=== PATIENT | female | born 1950 | race Asian ===

== ENCOUNTER 2024-07-04 13:37 | Inpatient (IN) | payer MEDICARE, SELFPAY ==
[2024-07-04] VITALS (15 sets, daily range): BP systolic 95–162; BP diastolic 50–102; PULSE 40–448; RESP 13–24; TEMP 36.2–37; O2SAT 87–100; BMI 27.4
--- NOTE | 2024-07-04 13:44 | EKG_ITS ---
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
--- NOTE | 2024-07-04 13:44 | PD.EDADULT ---
ED General RME/HPI General Chief complaint: Syncope / Near Syncope Stated complaint: SYNCOPE Time Seen by Provider: 07/04/24 13:43 Arrival date/time: 07/04/24 13:37 CC: Syncope versus near syncope HPI patient presents the ER via EMS who were called initially to a unresponsive at the [facility]. Patient was found slumped over slot machine. Patient was easily arousable however EMS reported the patient was bradycardic stable blood pressures in the 120s over 70s blood sugar was acceptable. Patient is now awake alert oriented stating this is not the first time its happened however the last time she did not seek medical attention and went home. Patient denies fever chills nausea chest pain shortness of breath or difficulty breathing no other complaints Related Data Home Medications ?Medication ?Instructions ?Recorded ?Confirmed furosemide 40 mg tablet (Lasix) 40 mg PO QDAY #0 tabs 12/05/16 11/12/17 simvastatin 20 mg tablet (Zocor) 20 mg PO HS #0 tabs 12/05/16 11/12/17 amlodipine 10 mg tablet 10 mg PO QDAY 11/12/17 11/12/17 famotidine 20 mg tablet (Pepcid) 20 mg PO QDAY 11/12/17 11/12/17 hydralazine 50 mg tablet 50 mg PO TID 11/12/17 11/12/17 isosorbide mononitrate 30 mg 30 mg PO QAM 11/12/17 11/12/17 tablet,extended release 24 hr lisinopril 40 mg tablet 40 mg PO QDAY 11/12/17 11/12/17 lorazepam 0.5 mg tablet 0.5 mg PO QDAY PRN Anxiety 11/12/17 11/12/17 metoprolol succinate 50 mg 50 mg PO QDAY 11/12/17 11/12/17 tablet,extended release 24 hr Previous Rx's ?Medication ?Instructions ?Recorded ondansetron HCl 4 mg tablet 4 mg PO Q6H #20 tabs 10/05/20 (Zofran) Allergies Allergy/AdvReac Type Severity Reaction Status Date / Time No Known Allergies Allergy Verified 11/06/20 08:57 Review of Systems Review of Systems Narrative Review of Systems: GEN: No fever, no chills, no weight loss EYES: No discharge, no visual changes, no pain HEENT: No ear pain, no congestion, no sore throat PULM: No shortness of breath, no cough, no congestion CV: No chest pain, no dyspnea on exertion, no palpitations GI: No nausea, no vomiting, no diarrhea, no pain, no constipation : No frequency, no urgency, no dysuria MUSC/SKEL: No joint pain, no back pain SKIN: No rash PSYCH: No hallucinations, no depression HEME/LYMPH: No easy bleeding or bruising tendencies NEURO: No weakness, no headache Past Medical History Past Medical History NEUROLOGIC: Positive Cerebrovascular Accident CARDIAC: Positive Cardiac Disorders and Hypertension; Negative Congestive Heart Failure RESPIRATORY: Negative Chronic Obstructive Pulmonary Disease (COPD) GENITOURINARY: Negative Renal Disease ENDOCRINE: Negative Diabetes Mellitus Type 1 or Diabetes Mellitus Type 2 Social History SMOKING STATUS: Never smoker ED Exam Narrative Physical exam: [General: Not in any acute distress Head normocephalic HEENT: Within acceptable limits Neck is supple nontender Chest equal chest rise nontender to palpation Respiratory: Clear to auscultation no wheezes crackles or rubs CV: Rate rhythm is regular no murmurs rubs or clicks Abdomen is soft nontender no masses positive bowel sounds all 4 quadrants Back: No CVA tenderness no spinous process tenderness from cervical spine thoracic and lumbar spine Skin: Intact no petechiae rash induration ulceration or crepitus Extremities: Moving all extremity against resistance cap refill less than 2 seconds neurosensory intact Neuro: Awake alert oriented x3 Glascow coma 15 no focal deficits] Course Course Course Narrative: Patient chart states that the patient is on metoprolol 50 mg daily however the patient is not sure that she takes it on a daily basis will attempt to update and confirm whether she is on an beta or calcium channel essie. This may be the cause of the persistent bradycardia. Per the patient's pharmacy, the only active antihypertensives are amlodipine and lisinopril. The patient is not on metoprolol. Review of the laboratory results show the patient has a LAWANDA which she has not had in the past along with his persistent bradycardia. Patient's case discussed with Dr. Torres, who agrees to accept the patient, Dr. Goldsmith will consult. Quality Measures none Orders Category Date Time Status EKG (ED ONLY) *Do not use* NOW Care 07/04/24 13:44 Completed EKG (ED Only) Stat Exams 07/04/24 13:44 Draft B-Type Natriuretic Peptide Stat Lab 07/04/24 14:00 Completed CBC Stat Lab 07/04/24 14:00 Completed Comprehensive Metabolic Panel Stat Lab 07/04/24 14:00 Completed Drug Screen,Urine Stat Lab 07/04/24 13:44 Ordered LDH (Lactate Dehydrogenase) Stat Lab 07/04/24 14:00 Completed Magnesium Stat Lab 07/04/24 14:00 Completed Partial Thromboplastin Time Stat Lab 07/04/24 14:00 Completed Prothrombin Time with INR Stat Lab 07/04/24 14:00 Completed Troponin I Stat Lab 07/04/24 14:00 Completed Urinalysis Stat Lab 07/04/24 13:44 Ordered Vital Signs Vital signs: Vital Signs Temperature 97.9 F 07/04/24 14:10 Pulse Rate 448 H 07/04/24 14:10 Respiratory Rate 16 07/04/24 14:10 Blood Pressure 113/58 L 07/04/24 14:10 Pulse Oximetry (%) 97 07/04/24 14:10 Oxygen Delivery Method Room Air 07/04/24 14:10 [facility] Patient data External records reviewed:: [facility] previous records and EMS form Clinical information provided by:: patient and EMS Social determinants that could affect healthcare access:: none Patient has the following chronic illnesses:: Hypertension hyperlipidemia How is presenting disease/condition affected by chronic disease/condition?: uneffected by Evaluation data The following diagnostics were reviewed and interpreted by me:: lab results, radiology exam(s) and EKG tracing(s) Lab and/or radiology exams considered but not ordered:: EKG performed at 1403 shows a ventricular rate of 4 7 NC interval 198 QRS of 98 QTc of 478 sinus bradycardia borderline prolonged QT interval. CBC shows no leukocytosis stable anemia no thrombocytopenia CMP shows no electrolyte imbalances there is an LAWANDA, no transaminitis or T. bili elevation Troponin is negative BNP is mildly elevated at 152. Interpretation Summary: I am concerned the patient's bradycardia is the result of the last 2 syncopal events the first 1 the patient states she never reported and had her brother take her home, patient's case discussed with Dr. Goldsmith who agrees the patient needs to be admitted for LAWANDA and symptomatic bradycardia. Dr. Sharif agrees to accept the patient for admission. Medications Medications considered but not ordered:: None Medication administrations:: None Consultations Consultation(s) initiated? (list below): Yes Consultation #1 (Physician, Specialty, Details): Dr. Goldsmith Time: 15:24 Diagnosis Differential Diagnosis ED Complaint MDM: Symptomatic bradycardia acute renal failure [facility] Most likely diagnosis given after review of the tests above:: Bradycardia syncope LAWANDA Admission Indicated Admission indicated?: indicated Explain why admission is indicated or not indicated:: Further medical management Admission Request Was there a request for admission?: No Disposition Plan Disposition Plan: Admit Medical Decision Making Differential Diagnosis Differential Diagnosis: Symptomatic bradycardia acute renal failure [facility] [place] Lab Data 07/04/24 14:00 07/04/24 14:00 Labs: Lab Results 07/04/24 Range/Units 14:00 WBC 7.9 (3.6-11.0) Thou/mm3 RBC 3.59 L (4.00-5.20) Miln/mm3 Hgb 11.0 L (12.0-16.0) g/dL Hct 32.2 L (36.0-46.0) % MCV 90 (80-100) fL MCH 30.6 (25.0-35.0) pg MCHC 34.2 (31.0-37.0) g/dl RDW Std Deviation 42.8 (36.4-46.3) fL Plt Count 327 (140-440) Thou/mm3 Neut % (Auto) 63 (37-80) % Lymph % (Auto) 27 (10-50) % Andrews % (Auto) 5 (0-12) % Eos % (Auto) 4 (0-10) % Baso % (Auto) 1 (0-2.5) % Neut # (Auto) 5.0 (1.8-7.7) Thou/mm3 Lymph # (Auto) 2.1 (1.0-4.8) Thou/mm3 Andrews # (Auto) 0.4 (0.0-0.8) Thou/mm3 Eos # (Auto) 0.3 (0.0-0.5) Thou/mm3 Baso # (Auto) 0.1 (0.0-0.2) Thou/mm3 Immature Gran # (Auto) 0.02 H (0.00-0.00) Thou/mm3 Absolute Nucleated RBC 0.00 (0.00-0.00) Thou/mm3 Immature Gran % 0 (0-0) % Nucleated RBC % 0 (0) /100 WBC PT 10.7 (9.0-12.2) Seconds INR 1.0 (0.9-1.3) APTT 27.3 (22.0-36.0) Seconds Sodium 137 (136-145) mMol/L Potassium 4.2 (3.4-5.1) mMol/L Chloride 105 (98-107) mMol/L Carbon Dioxide 24.2 (20.0-31.0) mMol/L Anion Gap 8 (7-16) BUN 37 H (9-23) mg/dL Creatinine 2.1 H (0.6-1.3) mg/dL Estim Creat Clear Calc Not Performed. eGFR 24 L (60 - ) See Note BUN/Creatinine Ratio 18 (12-20) Ratio Glucose 150 H (74-106) mg/dL Calculated Osmolality 285 (275-295) Calcium 9.2 (8.3-10.6) mg/dL Corrected Calcium 9.2 (8.5-10.1) mg/dL Magnesium 1.7 (1.6-2.6) mg/dL Total Bilirubin 0.4 (0.3-1.2) mg/dL AST 17 (0-34) U/L ALT 9 L (10-49) U/L Alkaline Phosphatase 74 (46-116) U/L Lactate Dehydrogenase 175 (120-246) U/L Troponin I < 0.020 (0.0-0.045) ng/mL B-Natriuretic Peptide 152 H (0-100) pg/mL Total Protein 6.5 (5.7-8.2) gm/dL Albumin 4.0 (3.4-4.8) gm/dL Globulin 2.5 (2.3-3.5) gm/dL Albumin/Globulin Ratio 1.6 (1.2-2.2) Discharge Plan Plan Patient Disposition: Other Care w/in Hosp ([facility]) Patient condition on transfer: Stable Prescriptions/Referrals Prescriptions/Med Rec: No Action furosemide [Lasix] 40 MG tablet 40 mg PO QDAY Qty: 0 simvastatin [Zocor] 20 MG tablet 20 mg PO HS Qty: 0 ondansetron HCl [Zofran] 4 mg tablet 4 mg PO Q6H Qty: 20 0RF metoprolol succinate 50 mg Tablet Extended Release 24 Hr 50 mg PO QDAY isosorbide mononitrate 30 mg Tablet Extended Release 24 Hr 30 mg PO QAM famotidine [Pepcid] 20 mg Tablet 20 mg PO QDAY lorazepam 0.5 mg Tablet 0.5 mg PO QDAY PRN (Reason: Anxiety) amlodipine 10 mg Tablet 10 mg PO QDAY hydralazine 50 mg Tablet 50 mg PO TID lisinopril 40 mg Tablet 40 mg PO QDAY Referrals: Lia Carolina MD [Primary Care Provider] - In 1 week Problem List Clinical Impression: Bradycardia, LAWANDA (acute kidney injury), Syncope Patient/Caregiver Discharge Instructions Print Language: Macedonian Stand Alone Forms: Cece Award Info., Patient Portal Info Letter PA/CORRECTIONS SPECIALIST Supervising Physician PA/CORRECTIONS SPECIALIST Supervising Physician: Bebo Noguera ENP
[2024-07-04 14:21] LABS: Basophils # (Auto) 0.1 Thou/mm3 (0.0-0.2); Basophils % (Auto) 1 % (0-2.5); Eosinophils # (Auto) 0.3 Thou/mm3 (0.0-0.5); Eosinophils % (Auto) 4 % (0-10); Hematocrit 32.2 % (36.0-46.0); Immature Granulocytes % (Auto) 0 % (0-0); Immature Granulocytes Auto 0.02 Thou/mm3 (0.00-0.00); Lymphocytes # (Auto) 2.1 Thou/mm3 (1.0-4.8); Lymphocytes % (Auto) 27 % (10-50); Mean Corpuscular HGB Conc 34.2 g/dl (31.0-37.0); Mean Corpuscular Hemoglobin 30.6 pg (25.0-35.0); Mean Corpuscular Volume 90 fL (80-100); Monocytes # (Auto) 0.4 Thou/mm3 (0.0-0.8); Monocytes % (Auto) 5 % (0-12); Neutrophils % (Auto) 63 % (37-80); Nucleated Red Blood Cell % 0 /100 WBC (0); Platelet Count 327 Thou/mm3 (140-440); RDW Standard Deviation 42.8 fL (36.4-46.3); Red Blood Count 3.59 Miln/mm3 (4.00-5.20); White Blood Count 7.9 Thou/mm3 (3.6-11.0)
[2024-07-04 14:38] LABS: B-Type Natriuretic Peptide 152 pg/mL (0-100)
[2024-07-04 14:39] LABS: Partial Thromboplastin Time 27.3 Seconds (22.0-36.0); Prothrombin Time 10.7 Seconds (9.0-12.2)
[2024-07-04 14:41] LABS: Alanine Aminotransferase 9 U/L (10-49); Albumin/Globulin Ratio 1.6 (1.2-2.2); Alkaline Phosphatase 74 U/L (46-116); Anion Gap 8 (7-16); Aspartate Amino Transferase 17 U/L (0-34); BUN/Creatinine Ratio 18 Ratio (12-20); Bilirubin,Total 0.4 mg/dL (0.3-1.2); Blood Urea Nitrogen 37 mg/dL (9-23); Calcium 9.2 mg/dL (8.3-10.6); Calcium (Corrected) 9.2 mg/dL (8.5-10.1); Carbon Dioxide 24.2 mMol/L (20.0-31.0); Chloride 105 mMol/L (98-107); Creatinine (Component) 2.1 mg/dL (0.6-1.3); Globulin 2.5 gm/dL (2.3-3.5); Glucose 150 mg/dL (74-106); Magnesium 1.7 mg/dL (1.6-2.6); Osmolality,Calculated 285 (275-295); Potassium 4.2 mMol/L (3.4-5.1); Sodium 137 mMol/L (136-145); Total Protein 6.5 gm/dL (5.7-8.2); Troponin I < 0.020 ng/mL (0.0-0.045); eGFR 24 See Note
[2024-07-04 14:59] LABS: LDH (Lactate Dehydrogenase) 175 U/L (120-246)
--- NOTE | 2024-07-04 16:02 | ECHO_ITS ---
Transthoracic Echo Report Ht (in): 62 Wt (lb): 140 Exam Location: Portable Status: Inpatient Manager Statistical Programming: Cielo Cali Indications: Procedure Performed: BP: 166 / 84 HR: 55 Rhythm: Sinus Technical Quality: Fair MEASUREMENTS (Male / Female) Normal Values 2D ECHO LV Diastolic Diameter PLAX 4.1 cm 4.2 - 5.9 / 3.9 - 5.3 cm LV Systolic Diameter PLAX 2.6 cm IVS Diastolic Thickness 1.1 cm 0.6 - 1.0 / 0.6 - 0.9 cm LVPW Diastolic Thickness 1.1 cm 0.6 - 1.0 / 0.6 - 0.9 cm LV Relative Wall Thickness 0.5 LVOT Diameter 1.8 cm LA Volume Index 30.3 cm?/m? 16 - 28 cm?/m? Ascending Aorta Diameter 3.4 cm M-MODE Aortic Root Diameter MM 2.8 cm LA Systolic Diameter MM 3.5 cm LA Ao Ratio MM 1.3 AV Cusp Separation MM 1.7 cm DOPPLER AV Peak Velocity 217.5 cm/s AV Peak Gradient 18.9 mmHg AV Mean Gradient 12.7 mmHg AV Velocity Time Integral 45.9 cm LVOT Peak Velocity 188.0 cm/s LVOT Peak Gradient 14.1 mmHg LVOT Velocity Time Integral 39.4 cm LVOT Cardiac Index 3280.9 cm?/min?m? AV Area Cont Eq vti 2.2 cm? AV Area Cont Eq pk 2.2 cm? MV Peak Velocity 170.0 cm/s MV Peak Gradient 11.6 mmHg MV Mean Velocity 94.0 cm/s MV Mean Gradient 4.0 mmHg MV Area PHT 2.7 cm? MR Peak Velocity 408.5 cm/s MR Peak Gradient 66.7 mmHg Mitral E Point Velocity 94.5 cm/s Mitral A Point Velocity 165.0 cm/s Mitral E to A Ratio 0.6 LV E' Lateral Velocity 9.7 cm/s Mitral E to LV E' Lateral Ratio 9.8 LV E' Septal Velocity 4.8 cm/s Mitral E to LV E' Septal Ratio 19.7 TR Peak Velocity 296.0 cm/s TR Peak Gradient 35.0 mmHg FINDINGS Left Ventricle Normal left ventricular size, systolic function with no obvious regional wall motion abnormalities. Mild LVH. The ejection fraction is visually estimated at 60-65%. Right Ventricle The right ventricle is normal in size and systolic function. The estimated right ventricular systoli c pressure, 43 mmHg. RAP 5. Left Atrium The left atrium is normal by two-dimensional, color flow and Doppler imaging with no structural abnormalities, no thrombus formation present. Right Atrium The right atrium is normal by two-dimensional imaging, color flow and Doppler imaging with no struct ural abnormalities, no thrombus formation present. Atrial Septum The interatrial septum appears normal with no evidence of a shunt. Aorta The aorta is normal by two-dimensional, color flow and Doppler interrogation. Mitral Valve The mitral valve is moderately MAC. There is mild mitral valve regurgitation. Aortic Valve The aortic valve is trileaflet. Mild sclerosis without stenosis. There is no significant aortic valv e regurgitation. Tricuspid Valve The tricuspid valve is normal by two-dimensional, color flow and Doppler interrogation. There is mil d tricuspid valve regurgitation. Pulmonic Valve There is no significant pulmonic valve regurgitation. Vessels The pulmonary artery appears normal. The inferior vena cava pulmonary and hepatic veins appear simone l. Pericardium The pericardium is normal by two-dimensional imaging. There is no significant pericardial effusion. CONCLUSIONS Normal LV size and function. Mild LVH. Estimated EF 60-65% Normal RV size and function. Estimated RVSP 43mmHg Moderately MAC. Mild MR, TR Mild AV sclerosis without stenosis. Meka Alex (Electronically Signed) Final Date: 05 July 2024 15:44
--- NOTE | 2024-07-04 16:14 | ESHP_ITS ---
Documentation for date of: 07/04/24 [facility] History of Present Illness History of present illness: This is a 74-year-old female with PMHx of HTN, HLD, GERD, cardiomyopathy (unknown), and gout BIBA for syncope. [place]. Reportedly, she lost consciousness and fell on the ground. Patient does not remember event, or how long she was out for. Her sister picked her up from the floor and supposedly she was out for about a minute. She denies any symptoms leading to the event such as palpitation, chest pain, shortness of breath. No reported bowel or GI incontinence. No seizure activity. No head trauma. Patient had similar symptoms several weeks ago she passed out at home. She follows up with Dr. Goldsmith outpatient for heart problem, and previously has been prescribed LASIX which was stopped by cardiology and currently not taking. She has a history of hypertension for which she takes CLONIDINE, AMLODIPINE, LISINOPRIL and HYDROCHLOROTHIAZIDE. She checks her vitals daily and sometimes her blood pressure monitor shows low for which she would skip one of the medications. She states she has been eating well and drinking enough fluids. Denies fever, headaches, seizure activities, visual changes, focal neurological deficits, chest pain, palpitations, shortness of breath, cough, GI bleed, abdominal pain, N/V/D/C, dysuria, polyuria or hematuria. Denies tobacco use, alcohol use, or drug use. No sick exposure or recent travel. ED COURSE: Afebrile, BP 111/58, HR 40s, satting 97% on room air Hgb 11 (baseline 13), no leukocytosis, normal coag studies CMP showed CR 2.1, BUN 37, GFR 24 (baseline 40?50) BNP 152, troponin is negative EKG showed sinus bradycardia, no acute ST changes The hospitalist team has been consulted for this patient. We will admit patient for syncope workup. PMHx: HTN, HLD, GERD, cardiomyopathy, gout PSHx: None MEDS: CLONIDINE, ISOSORBIDE MONONITRATE, AMLODIPINE, LISINOPRIL, LORAZEPAM, HCTZ, iron, ALLOPURINOL ALLERGIES: NKA SH: Denies tobacco, alcohol or drug use Exam Vital Signs Temp Pulse Resp BP Pulse Ox O2 Del Method 97.9 F 448 H 16 113/58 L 97 Room Air 07/04/24 14:10 07/04/24 14:10 07/04/24 14:10 07/04/24 14:10 07/04/24 14:10 07/04/24 14:10 Narrative Exam GENERAL * Normal-appearing elderly female, no apparent distress, on room air HEENT * NCAT.?ARIEL. Oral mucosa is moist. Patent Nares NECK * Supple, nontender, no thyromegaly, no meningismus, no JVD, no step offs CHEST * Bradycardic, regular rhythm, no m/g/r * CTAB, no w/r/r. Symmetrical chest rise. No intercostal subcostal retraction * Atraumatic, nontender, no crepitus, symmetrical expansion. ABDOMEN * Soft, flat, nontender. No guarding/rebound tenderness/masses. * Bowel sounds presents EXTREMITIES * Nontender, no cyanosis, no edema * No edema/cyanosis.? SKIN * Warm and dry, no jaundice/rashes. NEUROMUSCULAR * No lumbar or midline, no CVA, no paraspinal muscle spasm or tenderness. * Moves all 4 extremities well, with full ROM and good CSM. * FONTAINE x4, CN II-XII grossly intact. * No focal neurologic deficits. PSYCHIATRY * Normal mood and affect, cooperative, no SI or HI or hallucinations. Results: Labs 07/04/24 14:00 07/04/24 14:00 Labs: Short CBC 07/04/24 Range/Units 14:00 WBC 7.9 (3.6-11.0) Thou/mm3 Hgb 11.0 L (12.0-16.0) g/dL Hct 32.2 L (36.0-46.0) % Plt Count 327 (140-440) Thou/mm3 BMP 07/04/24 14:00 Sodium 137 Potassium 4.2 Chloride 105 Carbon Dioxide 24.2 BUN 37 H Creatinine 2.1 H Glucose 150 H Calcium 9.2 Cardiac Enzymes 07/04/24 Range/Units 14:00 Troponin I < 0.020 (0.0-0.045) ng/mL Liver Function 07/04/24 Range/Units 14:00 Total Bilirubin 0.4 (0.3-1.2) mg/dL AST 17 (0-34) U/L ALT 9 L (10-49) U/L Alkaline Phosphatase 74 (46-116) U/L Albumin 4.0 (3.4-4.8) gm/dL Quality Measures Quality Measures none Advance care planning discussed with:: patient Medications Home Medications and Allergies Home Medications ?Medication ?Instructions ?Recorded ?Confirmed ?Type amlodipine 10 mg tablet 10 mg PO QDAY 11/12/17 07/04/24 History isosorbide mononitrate 30 mg 30 mg PO QAM 11/12/17 07/04/24 History tablet,extended release 24 hr lisinopril 40 mg tablet 40 mg PO QDAY 11/12/17 07/04/24 History lorazepam 0.5 mg tablet 0.5 mg PO QDAY PRN Anxiety 11/12/17 07/04/24 History Allergies Allergy/AdvReac Type Severity Reaction Status Date / Time No Known Allergies Allergy Verified 11/06/20 08:57 Visit Medications Acetaminophen (Acetaminophen 325 Mg Tablet) 650 mg PO Q6H PRN PRN Reason: PAIN SCALE 1-3 (mild Stop: 08/03/24 16:01 Acetaminophen (Acetaminophen 325 Mg Tablet) 650 mg PO Q6H PRN PRN Reason: Fever >100 Stop: 08/03/24 16:01 Hydrocodone Bitart/Acetaminophen (Hydrocodone/Apap 10/325 Tab) 1 tab PO Q4HR PRN PRN Reason: PAIN SCALE 7-10 (Severe Stop: 07/09/24 16:01 Magnesium Sulfate (Magnesium Sulfate Ivpb) 4 gm in 50 mls @ 12.5 mls/hr IV X1 ONE Stop: 07/04/24 20:03 Sodium Chloride (Ns) 500 mls @ 999 mls/hr IV .Q31M ONE Stop: 07/04/24 16:32 Sodium Chloride (Ns) 1,000 mls @ 70 mls/hr IV .[id number] CANDIE Stop: 08/03/24 16:04 Melatonin (Melatonin 3 Mg Tablet) 3 mg PO HS PRN PRN Reason: Insomnia Stop: 08/03/24 20:59 Ondansetron HCl (Ondansetron Inj 2 Mg/Ml Inj 2 Ml) 4 mg IV Q6H PRN; Protocol PRN Reason: NAUSEA OR VOMITING Stop: 08/03/24 16:01 Oxycodone/Acetaminophen (Oxycodone/Apap 5/325 Tablet) 1 tab PO Q6H PRN PRN Reason: PAIN SCALE 4-6 (Moderate Stop: 07/09/24 16:01 Pantoprazole Sodium (Pantoprazole Inj 40 Mg Vial) 40 mg IVP QDAY CANDIE Stop: 08/04/24 08:59 Assessment & Plan Plan In summary: 74-year-old female with PMHx of HTN, HLD, GERD, cardiomyopathy (unknown), and gout admitted for syncope. Patient was found to be bradycardic with HR in 40s, EKG sinus bradycardia no ST changes, normal troponins. Appreciate recommendations from cardiology. Syncope likely 2/2 Sinus bradycardia Presenting with [place]opal [place], patient passed out suddenly and fell on the floor. Patient without for about 1 minute, does not remember the event, denied head trauma. Had similar episode 4 weeks ago that occurred at home. Takes multiple medication for hypertension and states sometimes her blood pressure runs low on the monitor and she would skip one of her meds. Follows up with cardiology outpatient for an ongoing cardiomyopathy, previously prescribed LASIX which was discontinued. Currently not taking. Denies seizure activities, fever, chills, signs of infection. No metabolic or electrolyte abnormalities on workup. Possible dehydration component given LAWANDA. EKG showed sinus bradycardia with HR in 40s, BP soft. Otherwise asymptomatic, without chest pain, shortness of breath, dizziness or lightheadedness. Troponin negative. BNP 152. ? Admit telemetry ? Given 500 cc NS bolus ? Started 1000 cc NS at 70 cc/hr ? Pending urinalysis ? Pending lipid panel, TSH ? Pending echocardiogram ? Pending pacemaker placement with cardiology tomorrow (likely discharge after procedure) LAWANDA CKD stage IIIa Likely in settings of dehydration. CR 2.1, BUN 37, GFR 24 (baseline 40?50). Anticipate treatment with fluids as above ? Renally dose meds, avoid overdiuresis and NEPHROTOXINS. ? Management as above Hypertension Patient on multiple ANTIHYPERTENSIVE medication. She states she frequently has low blood pressure on monitor for which she skips one of her medications. Currently normotensive. ? Telemetry ? Resume home medications as indicated. Gout Hx of gout. No sign of gout flareup at this time. ? Holding home ALLOPURINOL settings of LAWANDA. Health maintenance Diet: NPO GI prophylaxis: PROTONIX DVT prophylaxis: SCD Antibiotics: Not indicated CODE STATUS: Full code Disposition: Pending pacemaker with cardiology Patient case was discussed with attending, Dar Sharif MD and senior residents Dr. Daily and Dr. Rodgers. Suri Mendoza DO PGYI Attending Provider Attestation/Addendum I reviewed labs, imaging, EKG, home medications and prior available records. Face to face evaluation was performed by me. I have personally examined the patient and discussed assessment and plan with the IM team. I reviewed the resident note and agree with the plan with exceptions as below. Syncope, probably cardiogenic Sinus bradycardia Symptomatic bradycardia LAWANDA on CKD Primary hypertension Telemetry level of care Hold clonidine which can cause bradycardia as a side effect Consulted cardiology Ordered echocardiogram Order orthostatic vital signs Hold antihypertensive treatment in the setting of borderline hypotension
--- NOTE | 2024-07-04 16:20 | PC.NURSE ---
PATIENT BIBA FROM [facility] AFTER BEING UNRESPOSIVE WHILE SITTING AT [employer]. PATIENT RESPONDED TO PAINFUL STIMULI (SHOULDER PINCH)BUT WAS LETHARGIC / UNRESPONSIVE OTHERWISE. PATIENT BECAME RESPONSIVE WHEN PLACED INTO BACK OF AMBULANCE [facility]NTO [facility]. PATIENT HAS BEEN BRADYCARDIC WHITH HEART RATE IN THE 40S. PATIENT GCS 15 UPON ARRIVAL TO ER AND RESPONDED TO ALL QUESTIONS APPROPRIATELY. HX OF HTN, AND ARTHRITIS WITH NKA.
--- NOTE | 2024-07-04 16:24 | PC.NURSE ---
PATIENT HEART RATE DROPPED TO 37. DR HOGAN CALLED AND INFROMED OF DROP IN HEART RATE. NO FURTHER ORDERS GIVEN.
[2024-07-04] MEDS: SODIUM CHLORIDE 0.9% 500 ML 500 ML 999 ML IV (16:51)
[2024-07-04 17:34] LABS: Collection Type, Urine Clean Catch
[2024-07-04] MEDS: SODIUM CHLORIDE 0.9% 1000 ML 1,000 ML 70 ML IV (18:07)
[2024-07-04] MEDS: Magnesium Sulfate 4 GM Ivpb 4 GM/50 ML BAG IV (18:08)
[2024-07-04 18:10] LABS: Bacteria,Urine 4+; Bilirubin,Urine Negative (Negative); Blood,Urine Negative (Negative); Color,Urine Lt-Yellow (Lt Yel-Yel); Glucose, Urine Negative (Negative); Hyaline Casts,Urine < 1 /hpf (0-1); Ketones,Urine Negative (Negative); Leukocyte Esterase,Urine Positive (Negative); Nitrite,Urine Positive (Negative); Protein,Urine Trace (Neg - Trace); RBC,Urine 4 /hpf (0-3); Specific Gravity,Urine 1.011 (1.001-1.035); Squamous Epithelial Cell,Urine 2 /hpf (0-5); Urobilinogen,Urine Negative mg/dL (0.0-1.0); WBC,Urine 128 /hpf (0-5)
[2024-07-04 18:11] LABS: Clarity,Urine Hazy (Clear/Hazy)
[2024-07-04 18:42] LABS: Amphetamine/Methamp Scrn,U Negative (Negative); Barbiturate Screen,Urine Negative (Negative); Benzodiazepines Screen,Urine Negative (Negative); Benzoylecgonine Screen, Ur Negative (Negative); Fentanyl Screen,Urine Negative (Negative); Opiate Screen,Urine Negative (Negative); THC Screen,Urine Negative (Negative)
--- NOTE | 2024-07-04 19:26 | ESCONSULT_ITS ---
RE: ANANT CORONADO : 1950 DATE OF CONSULTATION: 07/04/2024 CONSULTING PHYSICIANS: Hospitalist and also Dr. Suri Mendoza, PG-1 REASON FOR CONSULTATION: Evaluation of symptoms of right cardiac syncope. CHIEF COMPLAINT: Passed out. HISTORY OF PRESENT ILLNESS: The patient is a 74-year-old lady known to me with a history of hypertension, used to be on beta blockers, not on beta blockers anymore, hyperlipidemia, gastroesophageal reflux disease, fair health, very well until today, the patient __she [place]opal [place] She slumped over in sitting position, passed out completely for several minutes. She does not recall the event whatsoever. She clearly had a full loss of consciousness and regained classic syncopal episode. EMS arrived, heart rate was only in the high 30s, low 40s, very slow heart rate and she was hypotensive briefly, but blood pressure returned normal. In the initial assessment, she was in sinus bradycardia at rate of 40 beats per minute. EKG showed marked sinus bradycardia. Initial lab data showed creatinine of 2.1, BUN 33. She has known history of CKD based on creatinine clearance of 39. Admitted to the hospital, diagnosed with syncopal episode, symptomatic bradycardia. She is feeling better. She does not complain of any further chest pain or shortness of breath. She is alert and oriented. MEDICATIONS: Medication list at home: She has been on lisinopril 40 mg daily for hypertension, isosorbide, and amlodipine. She is not on beta blockers anymore. She used to be on metoprolol in the past, but not taking any beta blockers. PAST MEDICAL HISTORY: Hypertension, history of bradycardia in the past, chronic kidney disease. SOCIAL HISTORY: The patient is a nonsmoker. Does not drink any alcoholic beverages. FAMILY HISTORY: Noncontributory. PHYSICAL EXAMINATION: General: Well-nourished, pleasant lady. Alert awake in no acute distress. Vital Signs: Blood pressure is 115/60, pulse rate 42, respirations 16, temperature normal. HEENT: Head is atraumatic normocephalic. Eyes, normal. ENT normal. Neck: Supple. No JVD. Carotid pulses are palpable but no bruits. Chest: Symmetrical. Lungs: Decreased breath sounds at the bases. No rales or rhonchi. Heart: S1, S2, regular. S4 gallop heard. No murmurs. Abdomen: Thin and soft. Extremities: No edema. Genitourinary and Rectal: Not performed. FLAVORING MAKER normal DIAGNOSTIC DATA: Echocardiogram showed evidence of _sinus bradycardia at a rate of 42 beats per minute. IMPRESSION: 1. Symptomatic bradycardia. 2. Syncopal episode. RECOMMENDATIONS: The patient is an 74-year-old lady. The patient is elderly female with a history of hypertension, admitted to the hospital with syncopal episode. The patient apparently had another syncopal episode two or three weeks ago. This is the second syncopal episode with no explanation. The patient had no predisposing factor, no nausea or vomiting, no beta blockers. The patient appears to have symptomatic bradycardia, sick sinus syndrome. Hence recommending permanent pacemaker implantation. Discussed about risks, benefits, and alternatives. She agreed to have pacemaker implantation, it will be performed tomorrow. I would like to thank for referring this patient for cardiovascular evaluation. I am glad to arrange for pacemaker implantation tomorrow. DT: 18:07:37 TT: 19:06:00 Ref: [id number] - TID: [id number] MTDD
[2024-07-05] VITALS (16 sets, daily range): BP systolic 116–209; BP diastolic 59–87; PULSE 55–99; RESP 14–21; TEMP 36.2–37.3; O2SAT 96–99
[2024-07-05] MEDS: SODIUM CHLORIDE 0.9% 1000 ML 1,000 ML 70 ML IV (05:18)
[2024-07-05 06:19] LABS: Basophils # (Auto) 0.1 Thou/mm3 (0.0-0.2); Basophils % (Auto) 1 % (0-2.5); Eosinophils # (Auto) 0.3 Thou/mm3 (0.0-0.5); Eosinophils % (Auto) 4 % (0-10); Hematocrit 36.9 % (36.0-46.0); Immature Granulocytes % (Auto) 0 % (0-0); Immature Granulocytes Auto 0.01 Thou/mm3 (0.00-0.00); Lymphocytes # (Auto) 1.9 Thou/mm3 (1.0-4.8); Lymphocytes % (Auto) 27 % (10-50); Mean Corpuscular HGB Conc 35.2 g/dl (31.0-37.0); Mean Corpuscular Hemoglobin 31.1 pg (25.0-35.0); Mean Corpuscular Volume 88 fL (80-100); Monocytes # (Auto) 0.4 Thou/mm3 (0.0-0.8); Monocytes % (Auto) 5 % (0-12); Neutrophils # (Auto) 4.4 Thou/mm3 (1.8-7.7); Neutrophils % (Auto) 62 % (37-80); Nucleated Red Blood Cell % 0 /100 WBC (0); Platelet Count 310 Thou/mm3 (140-440); RDW Standard Deviation 42.1 fL (36.4-46.3); Red Blood Count 4.18 Miln/mm3 (4.00-5.20); White Blood Count 7.1 Thou/mm3 (3.6-11.0)
[2024-07-05 07:19] LABS: Alanine Aminotransferase < 7 U/L (10-49); Albumin, Serum 4.4 gm/dL (3.4-4.8); Albumin/Globulin Ratio 1.5 (1.2-2.2); Alkaline Phosphatase 85 U/L (46-116); Anion Gap 11 (7-16); Aspartate Amino Transferase 21 U/L (0-34); BUN/Creatinine Ratio 20 Ratio (12-20); Bilirubin,Total 0.5 mg/dL (0.3-1.2); Blood Urea Nitrogen 28 mg/dL (9-23); Calcium 9.6 mg/dL (8.3-10.6); Calcium (Corrected) 9.6 mg/dL (8.5-10.1); Carbon Dioxide 22.1 mMol/L (20.0-31.0); Chloride 109 mMol/L (98-107); Creatinine (Component) 1.4 mg/dL (0.6-1.3); Estimated Creatinine Clearance 30.5 mL/min (>60); Free T4 (Free Thyroxine) 1.37 ng/dL (0.89-1.76); Globulin 2.9 gm/dL (2.3-3.5); Glucose 126 mg/dL (74-106); Magnesium 2.6 mg/dL (1.6-2.6); Osmolality,Calculated 290 (275-295); Phosphorous 3.3 mg/dL (2.4-5.1); Potassium 4.3 mMol/L (3.4-5.1); Sodium 142 mMol/L (136-145); Total Protein 7.3 gm/dL (5.7-8.2); eGFR 39 See Note
[2024-07-05 07:33] LABS: Cardiac Risk Estimate 4.2 RATIO (3.7-5.6); Cholesterol 187 mg/dL (132-200); HDL Cholesterol 45 mg/dL (40-60); LDL Cholesterol,Calculated 113 mg/dL (0-130); Triglycerides 146 mg/dL (30-150)
[2024-07-05] MEDS: hydrALAZINE HCL 25 MG TABLET 50 MG PO (07:57)
[2024-07-05] MEDS: PANTOPRAZOLE INJ 40 MG VIAL IVP (08:39)
[2024-07-05 09:13] LABS: Prothrombin Time 10.5 Seconds (9.0-12.2)
--- NOTE | 2024-07-05 13:33 | XR_ITS ---
Examination: AP chest single view Technique one AP portable upright chest single view Exam date and time: July 05, 2024 1659 hours INDICATIONS: Postop pacemaker insertion FINDINGS: Cardiac leads satisfactory position Minor prominence left ventricle No pneumothorax Moderate osteopenia IMPRESSION: Cardiac leads satisfactory position
--- NOTE | 2024-07-05 14:11 | ESPR_ITS ---
Documentation for date of: 07/05/24 Subjective Subjective Interval history: No acute overnight events. Patient doing well, no dizziness, no lightheadedness, no palpitations, currently n.p.o. for pacemaker placement later today. Denies fever, chills, headaches, chest pain, sob, cough, GI or urinary symptoms. Exam Vital Signs Temp Pulse Resp BP Pulse Ox O2 Del Method 99.1 F 99 20 160/61 H 97 Room Air 07/05/24 13:52 07/05/24 14:00 07/05/24 14:00 07/05/24 14:00 07/05/24 14:00 07/05/24 14:00 Narrative Exam GENERAL * Normal-appearing elderly female, no apparent distress, on room air HEENT * NCAT.?ARIEL. Oral mucosa is moist. Patent Nares NECK * Supple, nontender, no thyromegaly, no meningismus, no JVD, no step offs CHEST * Bradycardic, regular rhythm, no m/g/r * CTAB, no w/r/r. Symmetrical chest rise. No intercostal subcostal retraction * Atraumatic, nontender, no crepitus, symmetrical expansion. ABDOMEN * Soft, flat, nontender. No guarding/rebound tenderness/masses. * Bowel sounds presents EXTREMITIES * Nontender, no cyanosis, no edema * No edema/cyanosis.? SKIN * Warm and dry, no jaundice/rashes. NEUROMUSCULAR * No lumbar or midline, no CVA, no paraspinal muscle spasm or tenderness. * Moves all 4 extremities well, with full ROM and good CSM. * FONTAINE x4, CN II-XII grossly intact. * No focal neurologic deficits. PSYCHIATRY * Normal mood and affect, cooperative, no SI or HI or hallucinations. Objective Labs 07/06/24 04:55 07/06/24 04:55 Labs: Laboratory Results - last 24 hr 07/04/24 07/04/24 07/05/24 14:00 17:21 04:40 WBC 7.9 7.1 RBC 3.59 L 4.18 Hgb 11.0 L 13.0 D Hct 32.2 L 36.9 MCV 90 88 MCH 30.6 31.1 MCHC 34.2 35.2 RDW Std Deviation 42.8 42.1 Plt Count 327 310 Neut % (Auto) 63 62 Lymph % (Auto) 27 27 [place] % (Auto) 5 5 Eos % (Auto) 4 4 Baso % (Auto) 1 1 Neut # (Auto) 5.0 4.4 Lymph # (Auto) 2.1 1.9 [place] # (Auto) 0.4 0.4 Eos # (Auto) 0.3 0.3 Baso # (Auto) 0.1 0.1 Immature Gran # (Auto) 0.02 H 0.01 H Absolute Nucleated RBC 0.00 0.00 Immature Gran % 0 0 Nucleated RBC % 0 0 PT 10.7 10.5 INR 1.0 1.0 APTT 27.3 Sodium 137 142 Potassium 4.2 4.3 Chloride 105 109 H Carbon Dioxide 24.2 22.1 Anion Gap 8 11 BUN 37 H 28 H Creatinine 2.1 H 1.4 H D Estim Creat Clear Calc Not Performed. 30.5 L eGFR 24 L 39 L BUN/Creatinine Ratio 18 20 Glucose 150 H 126 H Calculated Osmolality 285 290 Calcium 9.2 9.6 Corrected Calcium 9.2 9.6 Phosphorus 3.3 Magnesium 1.7 2.6 Total Bilirubin 0.4 0.5 AST 17 21 ALT 9 L < 7 L Alkaline Phosphatase 74 85 Lactate Dehydrogenase 175 Troponin I < 0.020 B-Natriuretic Peptide 152 H Total Protein 6.5 7.3 Albumin 4.0 4.4 Globulin 2.5 2.9 Albumin/Globulin Ratio 1.6 1.5 Triglycerides 146 Cholesterol 187 LDL Cholesterol, Calc 113 HDL Cholesterol 45 Cholesterol/HDL Ratio 4.2 TSH 1.90 Free T4 1.37 Ur Collection Type Clean Catch Urine Color Lt-Yellow Urine Clarity Hazy Urine pH 6.0 Ur Specific [place] 1.011 Urine Protein Trace Urine Glucose (UA) Negative Urine Ketones Negative Urine Blood Negative Urine Nitrite Positive Urine Bilirubin Negative Urine Urobilinogen (Auto) Negative Ur Leukocyte Esterase Positive Urine RBC 4 H Urine WBC 128 H Ur Squamous Epith Cells 2 Urine Bacteria 4+ A Hyaline Casts < 1 Urine Opiates Screen Negative Urine Fentanyl Screen Negative Ur Barbiturates Screen Negative U Amphetamin/Meth Scrn Negative U Benzodiazepines Scrn Negative U Cocaine Metab Screen Negative U Marijuana (THC) Screen Negative Quality Measures Quality Measures none Advance care planning discussed with:: patient Assessment & Plan Assessment Current Active Medications: Generic Name Dose Route Start Last Admin Trade Name Freq PRN Reason Stop Dose Admin Acetaminophen 650 mg 07/04/24 16:02 Acetaminophen 325 Mg Tablet PO 08/03/24 16:01 Q6H PRN PAIN SCALE 1-3 (mild Acetaminophen 650 mg 07/04/24 16:02 Acetaminophen 325 Mg Tablet PO 08/03/24 16:01 Q6H PRN Fever >100 Hydrocodone Bitart/Acetaminophen 1 tab 07/04/24 16:02 Hydrocodone/Apap 10/325 Tab PO 07/09/24 16:01 Q4HR PRN PAIN SCALE 7-10 (Severe Sodium Chloride 1,000 mls @ 70 mls/hr 07/04/24 16:05 07/05/24 05:18 Ns IV 08/03/24 16:04 70 mls/hr .[id number] CANDIE Administration Vancomycin/Sodium Chloride 100 mls @ 120 mls/hr 07/05/24 13:34 Vancomycin/Ns 500 Mg Ivpb IV 07/05/24 14:23 X1 ONE Melatonin 3 mg 07/04/24 16:07 Melatonin 3 Mg Tablet PO 08/03/24 20:59 HS PRN Insomnia Ondansetron HCl 4 mg 07/04/24 16:02 Ondansetron Inj 2 Mg/Ml Inj 2 Ml IV 08/03/24 16:01 Q6H PRN NAUSEA OR VOMITING Protocol Oxycodone/Acetaminophen 1 tab 07/04/24 16:02 Oxycodone/Apap 5/325 Tablet PO 07/09/24 16:01 Q6H PRN PAIN SCALE 4-6 (Moderate Pantoprazole Sodium 40 mg 07/05/24 09:00 07/05/24 08:39 Pantoprazole Inj 40 Mg Vial IVP 08/04/24 08:59 40 mg QDAY CANDIE Administration Plan In summary: 74-year-old female with PMHx of HTN, HLD, GERD, cardiomyopathy (unknown), and gout admitted for syncope. Patient was found to be bradycardic with HR in 40s, EKG sinus bradycardia no ST changes, normal troponins. Appreciate recommendations from cardiology. Syncope likely 2/2 Sinus bradycardia Presenting with [place], patient passed out suddenly and fell on the floor. Patient without for about 1 minute, does not remember the event, denied head trauma. Had similar episode 4 weeks ago that occurred at home. Takes multiple medication for hypertension and states sometimes her blood pressure runs low on the monitor and she would skip one of her meds. Follows up with cardiology outpatient for an ongoing cardiomyopathy, previously prescribed LASIX which was discontinued. Currently not taking. Denies seizure activities, fever, chills, signs of infection. No metabolic or electrolyte abnormalities on workup. Possible dehydration component given LAWANDA. EKG showed sinus bradycardia with HR in 40s, BP soft. Otherwise asymptomatic, without chest pain, shortness of breath, dizziness or lightheadedness. Troponin negative. BNP 152. TG 146, cholesterol 187, LDL 113. TSH/free T4 within normal limit. Pacemaker was successfully placed with cardiology today. HR 88. ? Admit telemetry ? Given 500 cc NS bolus ? Given 1000 cc NS at 70 cc/hr ? Pending echocardiogram LAWANDA (improving) CKD stage IIIa Likely in settings of dehydration. CR 2.1 >1.4 after fluids. GFR 30 (baseline 40?50). Anticipate treatment with fluids as above ? Renally dose meds, avoid overdiuresis and NEPHROTOXINS. ? Management as above ? Pending urinalysis Hypertension Patient on multiple ANTIHYPERTENSIVE medication. She states she frequently has low blood pressure on monitor for which she skips one of her medications. BP 179/74 ? Telemetry ? Resume home CLONIDINE 0.2 mg TID ? Resumed home AMLODIPINE 10 mg daily ? Continue LABETALOL 20 mg q.4h. for SBP>180 Gout Hx of gout. No sign of gout flareup at this time. ? Holding home ALLOPURINOL settings of LAWANDA. Health maintenance Diet: NPO GI prophylaxis: PROTONIX DVT prophylaxis: SCD Antibiotics: Not indicated CODE STATUS: Full code Disposition: Pending pacemaker with cardiology Patient case was discussed with attending, Dr. Pino Carolina MD and senior residents Dr. Daily and Dr. Rodgers. Suri Mendoza, DO PGYI Senior Resident Attestation: The patient was interviewed and examined at the bedside this morning. She was concerned about her blood pressure systolic being in 160s, and was given hydralazine 50 Mg x 1. She underwent cardiac pacemaker placement and her antihypertensive medications clonidine 0.2 Mg 3 times daily and amlodipine 10 Mg once started. Given her resistant hypertension, renal artery Doppler ultrasound was ordered. Less likely to be hyperaldosteronism as sodium and potassium has been within normal limits in the baseline. I discussed with and supervised the human resources intern physician involved in the care of this patient. I personally saw and examined the patient and discussed the assessment and plan with the entire medicine team, including my attending. I agree with the assessment and plan as documented above. Niko Rodgers MD PGY2 Internal Medicine Attending Provider Attestation/Addendum I have examined the patient, reviewed labs and imaging findings, discussed the case with the resident(s), and reviewed entered orders. I agree with the plan of care as outlined in this note, with these additional summaries/recommendations: Patient seen at bedside. No acute overnight events. This morning at bedside patient is anxious because her systolic blood pressures trending in the 160s. Discussed with patient that she is currently n.p.o. for procedure and we will allow higher blood pressure in the setting of bradycardia as a compensation mechanism. Patient admitted for symptomatic bradycardia with 2 syncopal episodes. Etiology most likely secondary to sick sinus syndrome. Patient will go for pacemaker placement today with cardiology. Patient was found to have LAWANDA on CKD stage III on admission. LAWANDA most likely secondary to prerenal azotemia and currently improving. Creatinine 1.4 and BUN 28 today. Continue to avoid nephrotoxic agents as tolerated and renally dose medications. We will resume home antihypertensives postprocedure. Hold home allopurinol in the setting of LAWANDA. Urine culture pending although patient has no urinary symptoms to report at this time. Patient updated on the plan and in agreement. Repeat hematology and chemistry panel in AM. Dr. Carolina
[2024-07-05] MEDS: VANCOMYCIN/NS 500 MG IVPB 100 ML 120 MG IV (14:26)
[2024-07-05] MEDS: LABETALOL INJ 5 MG/ML VIAL 20 ML 20 MG IVP (14:29)
--- NOTE | 2024-07-05 16:03 | PC.NURSE ---
Patient transferred back to room 264 post-pacemaker insertion. Patient is alert and oriented. Able to express needs verbally with clear speech. Able to aswer questions appropirately and to follow commands. Patient denies pain and discomfort at this time. No acute signs of distress, no SOB noted. Surgical site to left upper chest coered with dry dressing and tagaderm. Dressing in place, dry, and intact. No sweeling or hematoma noted to surgical site. Sling provided for left upper extremity with verbal and written instructions to patient for its use. Report provided to bedside nurse. No further questions at this time.
--- NOTE | 2024-07-05 16:05 | PC.SS ---
Rounding Note: Patient obtained pacemaker. Plan is for the patient to d/c home tomorrow.
[2024-07-05] MEDS: amLODIPine BESYLATE 5 MG TABLET 10 MG PO (16:09)
[2024-07-05] MEDS: cloNIDine HCL 0.1 MG TABLET 0.2 MG PO ×2 (16:09→21:43)
--- NOTE | 2024-07-05 16:35 | ESOP_ITS ---
RE: ANANT CORONADO : 1950 DATE OF OPERATION: 07/05/2024 PROCEDURE PERFORMED: 1. Implantation of dual-chamber AV sequential permanent pacemaker. 2. Conscious sedation 30 minutes duration. PREOPERATIVE DIAGNOSES: Sick sinus syndrome, symptomatic bradycardia, syncopal episode. POSTOPERATIVE DIAGNOSES: Successful implantation of dual-chamber AV sequential permanent pacemaker [employer], [employer] dual chamber device. HISTORY AND INDICATIONS: The patient is a 74-year-old lady with a history of sick sinus syndrome, hypertension, and two episodes of syncope. Yesterday, she was sent to the hospital with severe sudden loss of consciousness with no other associated symptoms while she was at the [facility]. She fainted, heart rate in the 30s. She had severe sinus bradycardia at the time of admission, it later on. She is not reversible cause such as beta blockers or other medications. She had a similar episode 2-3 weeks ago. She has had a history of bradycardia in the past, but she was on beta-essie. Currently, she is not on any beta blockers. Heart rate drops to 35 to 40 beats per minute, marked sinus bradycardia. Dual-chamber pacemaker implant is recommended for symptomatic bradycardia class 1 indication. DESCRIPTION OF PROCEDURE: The patient was brought to cardiac catheterization laboratory. She was given 2 mg of Versed and 50 mcg of fentanyl, additional 50 mcg of fentanyl for sedation. Left subclavian area was prepared in sterile fashion. 1% Xylocaine local anesthesia was given. Left subclavian vein was cannulated by micropuncture technique. Two guidewires were introduced. Linear incision was made with a blunt dissection, pocket was created. Subsequently, a 6-Zimbabwean atrial sheath was introduced. Six-Zimbabwean atrial ventricular active fixation leads advanced to the right atrial appendage, right ventricular apex. Both leads were anchored to the pectoral fascia after obtaining satisfactory threshold. The generator was attached to the leads. The pacemaker generator was placed in the pocket. Subcutaneous tissue closed using 2-0 chromic sutures. Skin was closed using james. The patient received antibiotic 1 g and set before the procedure. Post procedure also added a dose of vancomycin 500 mg. The patient tolerated the operation well. No complications. Estimated blood loss less than 5 mL. Chest x-ray showed no pneumothorax. The device detailed are as follows: The device is manufactured by [employer]. The device is Assurity MRI Safe [id number], serial number is [id number], the atrial lead is Tendril STS 2087TC, serial number is [id number], atrial lead is Tendril STS 2087TC, serial number is [id number]. Pacemaker threshold are as follows: Atrial threshold 1.8 volts, ventricle threshold is 0.75 volts, atrial sensing 2.9 millivolts, ventricle 11.2, impedances in atrium 500, ventricle 710. The pacer is programmed with DDDR more 60, lower rate limit, upper rate 130 tracking rate. FINAL SUMMARY: Successful implantation of dual-chamber AV sequential permanent pacemaker. No complications during the operation. cc: Shikha Goldsmith MD DT: 15:35:27 TT: 16:29:00 Ref: [id number] - TID: [id number]
[2024-07-06] VITALS: BP 157/79; PULSE 63; PULSE 67; RESP 16; TEMP 36.2; O2SAT 97
[2024-07-06 04:00] VITALS: BP 121/60; PULSE 60; PULSE 63; RESP 23; TEMP 36.5; O2SAT 95
[2024-07-06 05:48] VITALS: BMI 25.9
[2024-07-06 06:01] VITALS: BP 121/60; PULSE 60
[2024-07-06] MEDS: cloNIDine HCL 0.1 MG TABLET 0.2 MG PO (06:01)
[2024-07-06 06:15] LABS: Basophils # (Auto) 0.1 Thou/mm3 (0.0-0.2); Basophils % (Auto) 1 % (0-2.5); Eosinophils # (Auto) 0.2 Thou/mm3 (0.0-0.5); Eosinophils % (Auto) 3 % (0-10); Hematocrit 34.2 % (36.0-46.0); Hemoglobin 11.9 g/dL (12.0-16.0); Immature Granulocytes % (Auto) 0 % (0-0); Immature Granulocytes Auto 0.02 Thou/mm3 (0.00-0.00); Lymphocytes # (Auto) 1.9 Thou/mm3 (1.0-4.8); Lymphocytes % (Auto) 24 % (10-50); Mean Corpuscular HGB Conc 34.8 g/dl (31.0-37.0); Mean Corpuscular Volume 89 fL (80-100); Monocytes # (Auto) 0.5 Thou/mm3 (0.0-0.8); Monocytes % (Auto) 7 % (0-12); Neutrophils # (Auto) 5.2 Thou/mm3 (1.8-7.7); Neutrophils % (Auto) 66 % (37-80); Nucleated Red Blood Cell % 0 /100 WBC (0); Platelet Count 332 Thou/mm3 (140-440); RDW Standard Deviation 42.7 fL (36.4-46.3); Red Blood Count 3.84 Miln/mm3 (4.00-5.20)
[2024-07-06 07:02] LABS: Alanine Aminotransferase < 7 U/L (10-49); Albumin, Serum 4.2 gm/dL (3.4-4.8); Albumin/Globulin Ratio 1.6 (1.2-2.2); Alkaline Phosphatase 78 U/L (46-116); Anion Gap 9 (7-16); Aspartate Amino Transferase 14 U/L (0-34); BUN/Creatinine Ratio 21 Ratio (12-20); Bilirubin,Total 0.7 mg/dL (0.3-1.2); Blood Urea Nitrogen 29 mg/dL (9-23); Calcium 9.6 mg/dL (8.3-10.6); Calcium (Corrected) 9.6 mg/dL (8.5-10.1); Carbon Dioxide 23.8 mMol/L (20.0-31.0); Chloride 107 mMol/L (98-107); Creatinine (Component) 1.4 mg/dL (0.6-1.3); Estimated Creatinine Clearance 30.6 mL/min (>60); Globulin 2.6 gm/dL (2.3-3.5); Glucose 146 mg/dL (74-106); Magnesium 1.9 mg/dL (1.6-2.6); Osmolality,Calculated 288 (275-295); Phosphorous 3.6 mg/dL (2.4-5.1); Potassium 4.1 mMol/L (3.4-5.1); Sodium 140 mMol/L (136-145); Total Protein 6.8 gm/dL (5.7-8.2); eGFR 39 See Note
--- NOTE | 2024-07-06 07:30 | XR_ITS ---
Examination: Renal sonography Renal Doppler arterial sonographic evaluation kidneys Exam date and time: July 06, 2024 0615 hours INDICATIONS: Syncopal episode, patient passed out today, diagnosis resistant hypertension TECHNIQUE AND FINDINGS:: Multiple high resolution grayscale sonographic images kidneys, assessment peak systolic arterial velocities calculation resistive indices and renal aortic ratios Right kidney 9.2 x 4.4 x 4.6 cm Left kidney 8.4 x 5.1 x 4.2 cm Lower pole right renal cyst 16mm Assessment peak systolic velocities demonstrates no elevation of peak systolic velocities Normal resistive indices Normal renal aortic ratios IMPRESSION: No findings diagnostic for renal artery stenosis
[2024-07-06] MEDS: Magnesium Sulfate 2 GM Ivpb 2 GM/50 ML BAG IV (07:53)
[2024-07-06 08:00] VITALS: BP 108/48; PULSE 60; PULSE 62; RESP 14; TEMP 36.6; O2SAT 97
[2024-07-06 08:28] VITALS: BP 115/62; PULSE 60
[2024-07-06] MEDS: amLODIPine BESYLATE 5 MG TABLET 10 MG PO (08:28)
[2024-07-06] MEDS: PANTOPRAZOLE INJ 40 MG VIAL IVP (08:28)
--- NOTE | 2024-07-06 09:21 | PC.SS ---
CLINICAL LABORATORY SCIENTIST conducted bedside contact with the patient conduct initial assessment and to discuss discharge planning. Patient confirmed demographic information. Patient resides at home with family. Patient does not utilize any form of DME to assist with ambulation. Patient does not utilize home oxygen. Patient describes the ability to complete ADL?s independently. Patient identified son, Linus Ryan ; as medical surrogate decision maker. Patient?s PCP is Melodie Carolina. Patient?s licensed real estate broker is Dr. Goldsmith. Patient utilizes [facility] for medication services. Patient does not participate with dialysis. Plan is for the patient to return home at the time of discharge. Family will provide transportation on behalf of the patient. PT has recommended home health services. No preferred facility identified. Patient requesting rollating walker. manager social services to submit referral for DME. No preferred vendor identified. No further intervention required at this time, healthcare social worker will be available to address any further concerns. Next of Kin: Linus Ryan D/C Plan: Home
--- NOTE | 2024-07-06 09:31 | PC.SS ---
Walkers The diagnosis creates mobility limitation that significantly impairs ability to participate in the patients activities of daily living either in their entirety, or in a reasonable time frame. Also the patient is able to safely use the walker and the patient?s mobility is sufficiently resolved with the use of the walker and cane has been ruled out.
--- NOTE | 2024-07-06 10:16 | ESDS_ITS ---
<Statement entered by Paris Daily MD - 07/06/24 15:42> I discussed with and supervised my co-resident involved in the care of this patient. I agree with the assessment and plan as documented above. Paris Daily,PGY-3 Disclaimer: Despite multiple revisions, due to the dictation software being used, the document below may not be free of grammatical errors including phonetic/typographic errors. However, this does not deter from our commitment to providing health care in the patient's best interest in mind. Planned Discharge Date 07/06/24 DS: Providers Provider Date of admission: 07/04/24 16:02 Primary care physician: Lia Carolina MD Admitting Provider: Dar Sharif MD Attending Provider on Admission: Pino Carolina MD Consults: 07/04/24 16:06 Consult to Cardiology Stat Comment: Syncope Consulting Provider: Shikha Goldsmith 07/06/24 08:00 Referral Physical Therapy Urgent Comment: Physician Instructions: Attending Provider on DC: Pino Carolina MD Discharging Provider: Pino Carolina MD DS: Diagnosis Problem List Completed Was Problem List Reviewed/Reconciled?: Yes Hospital Course Hospital Course Hospital course: This is a 74-year-old female with PMHx of HTN, HLD, GERD, cardiomyopathy (unknown), and gout admitted for syncope. Patient was found to be bradycardic with HR in 40s, EKG sinus bradycardia no ST changes, normal troponins. Echo done showed EF 60-65%, normal diastolic and systolic function. Patient underwent successful pacemaker placement with cardiology. Her symptoms have resolved at the time of discharge. Heart rate within normal limit. She takes multiple ANTIHYPERTENSIVE at home, states blood pressure currently low at home. We adjusted home antihypertensives as below. Bilateral renal ultrasound was normal. Blood pressure within normal limits at the time of discharge. PACEMAKER DEVICE DETAIL: The device is manufactured by [employer]. The device is Assurity MRI Safe [id number], serial number is [id number], the atrial lead is Tendril STS 2088TC, serial number is [id number], atrial lead is Tendril STS 2088TC, serial number is [id number]. Pacemaker threshold are as follows: Atrial threshold 1.8 volts, ventricle threshold is 0.75 volts, atrial sensing 2.9 millivolts, ventricle 11.2, impedances in atrium 500, ventricle 710. The pacer is programmed with DDDR more 60, lower rate limit, upper rate 130 tracking rate. PATIENT INSTRUCTIONS: Follow-up with PCP within 1-2 weeks of discharge. Follow-up with PCP regarding elevated FARTUN titer (1:80). Follow-up with PCP regarding resuming ALLOPURINOL which was held in settings of LAWANDA, CKD 3A vs. UTI. Follow-up with cardiology, Dr. Goldsmith within 1 week of discharge. Please record daily blood pressure readings, bring recordings with you to cardiology Return to Emergency Room if symptoms persist, worsen, or new symptoms develop. Take medications as prescribed below: ? Continue CIPROFLOXACIN 250 mg TID for 3 days (NEW) ? Continue CLONIDINE 0.2 mg TID ? Continue AMLODIPINE 10 mg daily ? Continue LORAZEPAM 0.5 mg daily ? STOP taking ISOSORBIDE mononitrate until you see cardiology. ? STOP taking LISINOPRIL until you see cardiology. ? STOP taking HYDROCHLOROTHIAZIDE until you see cardiology. ? STOP taking ALLOPURINOL until you see your PCP ADMISSION DIAGNOSES: Syncope likely 2/2 Sinus bradycardia LAWANDA ?CKD stage IIIa Enterobacter aerogenes UTI Hypertension Gout Patient case was discussed with attending, Pino Carolina MD and senior re sidents Dr. Daily and Dr. Rodgers. Suri Mendoza DO PGYI Time Spent with Patient Time attestation: Total time spent providing and/or coordinating discharge services: Greater than 35 minutes. Home Health Home Health Referral Orders: 07/06/24 09:37 Home Health Referral Routine Reason For Exam: physical therapy Home-Bound The patient must either because of illness or injury, need the aid of supportive devices such as crutches, canes, wheelchairs, and walkers; the use of special transportation; or the assistance of another person in order to leave their place of residence; OR have a condition such that leaving his or her home is medically contraindicated. In addition, the patient also meets the following criteria: patient is normally unable to leave the home and leaving home requires considerable taxing effort. Addendum to Home Health Certification Practitioner's Certification: I certify that the patient has been under my care in the hospital and the care of attending physician (see below). We had a [id number] encounter on (see date below). My clinical findings indicate that the patient is home bound per the above criteria and the Home Health Services noted in these orders are medically necessary. The primary reason for the [id number] encounter is related to the fact that the patient requires home health services. Date Certifying [id number] Physician Encounter: 07/04/23 Physician's Name who will Assume Oversight for Services: Lia [facility] Physician's Phone No.who will Assume Oversight for Service: MAINTENANCE HELPER UTILITY ENGINEER - Community Resources: Yes PT to Evaluate: Yes PT to evaluate and provide a treatmnet plan to increase patient's mobility and strength. Wound Care: No IV Therapy: No RN Safety Evaluation: Yes RN to evaluate and create a plan of care that will produce positive outcomes. Palliative Treatment: No Palliative treatment and evaluate the need for hospice. Home Health Aide - Personal Care: No Home Health Aide to assist with any ADL's. Exam Vital Signs Temp Pulse Resp BP Pulse Ox O2 Del Method 97.8 F 60 14 115/62 97 Room Air 07/06/24 08:00 07/06/24 08:28 07/06/24 08:00 07/06/24 08:28 07/06/24 08:00 07/06/24 08:00 Narrative Exam GENERAL * Normal-appearing elderly female, no apparent distress, on room air HEENT * NCAT.?ARIEL. Oral mucosa is moist. Patent Nares NECK * Supple, nontender, no thyromegaly, no meningismus, no JVD, no step offs CHEST * RRR, no m/g/r * CTAB, no w/r/r. Symmetrical chest rise. No intercostal subcostal retraction * Atraumatic, nontender, no crepitus, symmetrical expansion. ABDOMEN * Soft, flat, nontender. No guarding/rebound tenderness/masses. * Bowel sounds presents EXTREMITIES * Nontender, no cyanosis, no edema * No edema/cyanosis.? SKIN * Warm and dry, no jaundice/rashes. NEUROMUSCULAR * No lumbar or midline, no CVA, no paraspinal muscle spasm or tenderness. * Moves all 4 extremities well, with full ROM and good CSM. * FONTAINE x4, CN II-XII grossly intact. * No focal neurologic deficits. PSYCHIATRY * Normal mood and affect, cooperative, no SI or HI or hallucinations. Discharge Plan Plan Patient Disposition: Home w/HOME HEALTH Patient condition on transfer: Stable Care Plan Goals: Follow-up with PCP within 1-2 weeks of discharge. Follow-up with PCP regarding elevated FARTUN titer (1:80). Follow-up with PCP regarding resuming ALLOPURINOL which was held in settings of LAWANDA, CKD 3A vs. UTI. Follow-up with cardiology, Dr. Goldsmith within 1 week of discharge. Please record daily blood pressure readings, bring recordings with you to cardiology Return to Emergency Room if symptoms persist, worsen, or new symptoms develop. Take medications as prescribed below: ? Continue CIPROFLOXACIN 250 mg TID for 3 days (NEW) ? Continue CLONIDINE 0.2 mg TID ? Continue AMLODIPINE 10 mg daily ? Continue LORAZEPAM 0.5 mg daily ? STOP taking ISOSORBIDE mononitrate until you see cardiology. ? STOP taking LISINOPRIL until you see cardiology. ? STOP taking HYDROCHLOROTHIAZIDE until you see cardiology. ? STOP taking ALLOPURINOL until you see your PCP Prescriptions/Referrals Prescriptions/Med Rec: New clonidine HCl 0.2 mg tablet 0.2 mg PO TID 5 Days Qty: 15 0RF ciprofloxacin HCl 250 mg tablet 250 mg PO BID 3 Days Qty: 6 0RF Continued lorazepam 0.5 mg Tablet 0.5 mg PO QDAY PRN (Reason: Anxiety) amlodipine 10 mg Tablet 10 mg PO QDAY Held isosorbide mononitrate 30 mg Tablet Extended Release 24 Hr 30 mg PO QAM Hold Instructions: untill see Dr Goldsmith lisinopril 40 mg Tablet 40 mg PO QDAY Hold Instructions: untill you see Primary Referrals: Lia Carolina MD [Primary Care Provider] - Patient/Caregiver Discharge Instructions Discharge Activity: activity as tolerated Other Discharge Activity Instructions:: Please call to Schedule a follow up appointment with Dr. Goldsmith, (Gambling Broker), within one week upon discharge Address: [address] [place] [address]. Please call to schedule a follow up appointment with your primary care doctor 1- 2 weeks after discharge so he/she can make further recommendations about your overall health condition Other Discharge Diet Instructions: It is important to follow a heart healthy diet. Avoid saturated fat foods, foods and drinks with added sugar. Eat a well-balanced diet with plenty of fresh fruits, vegetables and whole grains if not contraindicated by your primary care provider. Choose water to hydrate yourself over any other type of drinks. Talk to your primary doctor for further advice for a diet that fits your nutritional body requirements and for an adequate exercise program to keep and improve your overall health condition. ALWAYS FOLLOW/CONSIDER YOUR PRIMARY CARE DOCTOR'S MEDICAL ADVICE BEFORE MAKING ANY CHANGES TO YOUR DIET AND LEVELS OF ACTIVITY Should you have any other questions or concerns on regards today?s procedure; feel free to contact us to [employer] Education Materials: Living with a Pacemaker, Causes of Syncope, Discharge Instructions for ..., Preventing Surgical Site Infections, Procedural Sedation, ED High Blood Pressure ..., [facility] [place] Instructions- Jordanian Print Language: Jordanian Activity Restrictions/Additional Instructions: Please call to Schedule a follow up appointment with Dr. Goldsmith, (Gambling Broker), within one week upon discharge Address: [facility] [place] [address]. Please call to schedule a follow up appointment with your primary care doctor 1- 2 weeks after discharge so he/she can make further recommendations about your overall health condition Take your new/previous medication as directed by the doctor. If there is no changes, continue to take medication at your usual time. DO NOT drive or operate any motor vehicle, heavy equipment, or machinery in the next 24 hours. DO NOT perform any activity that requires you to be fully alert in the next 24 hour. DO NOT sign any documentation in the next 24 hours that requires a full understanding of what you are signing for. DO NOT REMOVE THE DRESSING THAT COVERS YOUR SURGICAL SITE, KEEP IT CLEAN AND DRY. DO NOT RAISE YOUR LEFT ARM HIGHER THAN YOUR SHOULDER LEVE FOR ONE WEEK; IT INCLUDES DRIVING A MOTOR VEHICLE.. DOING SO MAY CAUSE COMPLICATIONS SUCH BUT NOT LIMITED TO LEAD MIGRATION AND POTENTIAL HEART RELATED PROBLEMS. A sling is provide to you; it must be worn for 24 hours following the procedure. If you need to take a shower, not recommended the same day of the surgery, but; until the following day, cover your dressing to keep it dry. If is easier for you, you can choose to take sponge baths to avoid getting your surgical dressing wet. You need to call the thermal spray operator?s office to schedule a follow up appointment. During this visit, your thermal spray operator will remove the dressing place on the surgical incision, DO NOT REMOVE IT BEFORE THIS DATE, and will take a look to the surgical site to make sure there is not complications after the procedure such as but not limited to infection. In addition, your thermal spray operator may consider removing the james placed during this procedure on the same day of your appointment. Call your primary care doctor right away, if you develop signs and symptoms of infection such as elevated temperature, malaise, redness to the surgical site, pain to the surgical site, or drainage. Should you have any other questions or concerns on regards today?s procedure; feel free to contact us to [employer] Stand Alone Forms: Cece Award Info., Patient Portal Info Letter Discharge Order Discharge Orders: Discharge (Routine); Ordered 07/06/24 Ordered By: Paris Daily Quality Discharge Quality Measures VTE prophylaxis Attestestation MD Attestation I have examined the patient, reviewed labs and imaging findings, discussed the case with the resident(s), and reviewed entered orders. I agree with the plan of care as outlined in this note. Dr. Carolina
[2024-07-06 12:00] VITALS: BP 119/62; PULSE 63; RESP 15; TEMP 36.3; O2SAT 97
--- NOTE | 2024-07-06 14:52 | PC.SS ---
DME referral submitted on [facility]. Awaiting responses.
--- NOTE | 2024-07-06 19:01 | PC.CM ---
Addendum entered by Benjamin Alexander RN 07/07/24 11:24: Start of care 07/09/24. Addendum entered by Benjamin Alexander RN 07/07/24 07:34: Accepted by [facility], pending start of care date. Original Note: Per web content & social media manager notes state patient does not have a preference for home health. I faxed to all agencies today.
== END 2024-07-06 13:02 | disposition home health service (06) | DRG 243 ==
LOC: SERX 15:25 → SERHOLD 16:41 → S2NX 22:48
PROVIDERS: Internal Medicine Cardiovascular Disease; Registered Nurse General Practice; Admitting Provider Student in an Organized Health Care Education/Training Program; Emergency Provider Emergency Medicine; PCP Internal Medicine; Visit Provider Student in an Organized Health Care Education/Training Program
PROC: 0JH606Z Insertion of Pacemaker, Dual Chamber into Chest Subcutaneous Tissue and Fascia, Open Approach (ICD-10-PCS; principal; 2024-07-05 12:30)
DX: I49.5 Sick sinus syndrome (principal); N17.9 Acute kidney failure, unspecified; N39.0 Urinary tract infection, site not specified; I42.9 Cardiomyopathy, unspecified; E86.0 Dehydration; I12.9 Hypertensive chronic kidney disease with stage 1 through stage 4 chronic kidney disease, or unspecified chronic kidney disease; N18.31 Chronic kidney disease, stage 3a; E78.5 Hyperlipidemia, unspecified; K21.9 Gastro-esophageal reflux disease without esophagitis; M10.9 Gout, unspecified; I95.9 Hypotension, unspecified; Z79.899 Other long term (current) drug therapy
CPT/HCPCS: 36415; 80053; 80061; 80307; 81001; 83615; 83735; 83880; 84100; 84439; 84443; 84484; 85025; 85610; 85730; 87077; 87086; 87186; 93005; 93306; 93975; 96360; 96361; 97162; 99152; 99153; 99285; A4565; A4649; C1894; C1898; J0171; J0461; J0690; J2250; J2310; J2371; J2470; J3010; J3370; J3475; J3490; J7030; J7040; A9270; J1920